=== PATIENT | male | born 1985 | race Caucasian/White ===

== ENCOUNTER 2019-01-17 14:49 | Emergency (ER) | payer BC ==
[2019-01-17 14:55] VITALS: BP 142/73; PULSE 91; RESP 18; TEMP 98.1
[2019-01-17] MEDS ORDERED: LIDOCAINE 1% INJ 10MG/ML (20 ML MDV) SQ ONE (15:03)
[2019-01-17] MEDS ORDERED: DIPH,PERTUS(ACELL)TETVAC-LF 0.5 ML VIAL IM ONE (15:54)
--- NOTE | 2019-01-17 16:21 | ED ---
General Adult HPI - General Chief complaint: Wound/Laceration Stated complaint: Hand lac Time Seen by Provider: 01/17/19 15:02 Source: patient Mode of arrival: ambulatory - History of Present Illness Initial comments: Patient is a 34-year-old male presents emergency Department with a chief complaint of cutting his finger with a knife. Patient reports incident happened one hour ago after he was using a knife and lacerated the medial aspect of his first left digit. Patient reports full range of motion of his left thumb. Patient reports active bleeding. Patient denies any edema at the site of injury. Patient is unaware of his tetanus status. Patient denies any numbness or tingling. Patient reports minimal pain and it is throbbing in nature. - Related Data Allergies Allergy/AdvReac Type Severity Reaction Status Date / Time acetaminophen Allergy Rash/Hives Verified 01/17/19 14:55 [From Darvocet-N] meperidine [From Demerol] Allergy Rash/Hives Verified 01/17/19 14:55 Penicillins Allergy Rash/Hives Verified 01/17/19 14:55 propoxyphene Allergy Rash/Hives Verified 01/17/19 14:55 [From Darvocet-N] Review of Systems ROS Statement: Those systems with pertinent positive or pertinent negative responses have been documented in the HPI. ROS Other: All systems not noted in ROS Statement are negative. Past Medical History Past Medical History: No Reported History History of Any Multi-Drug Resistant Organisms: None Reported Past Surgical History: Orthopedic Surgery Additional Past Surgical History / Comment(s): left ankle, left knee, reattached left bicep Past Psychological History: No Psychological Hx Reported Smoking Status: Never smoker Past Alcohol Use History: Occasional Past Drug Use History: None Reported General Exam - General Exam Comments Initial Comments: General: Well-developed well-nourished distress HEENT: Normocephalic/atraumatic, PERLL, pharynx erythema, swallowing well, EAC no erythema, no exudates, TM clear, no cervical lymph nodes Neck: Supple, nontender, trachea midline Chest/Lungs: Normal respirations, no signs of respiratory distress clear to auscultation bilaterally no wheezes, rales, rhonchi Cardiac: Regular rate and rhythm, normal S1-S2, no murmurs rubs or gallops Abdomen/GI: Soft nontender, bowel sounds equal or quadrant x4, no guarding, no rebound no CVA tenderness Musculoskeletal: 2 cm laceration on the medial aspect of the left thumb of the hand, full range of motion of the left thumb, mild active bleeding, normal capillary refill on all fingers, +2 dorsalis pedis and posterior tibialis, +2 ulnar radial pulses bilaterally Skin: Warmth, no rashes or lesions, no cyanosis or diaphoresis Neurologic: AAO x 3, CN 2-12 intact, Psychiatric: Mood and affect normal, judgment normal Course Vital Signs 01/17/19 14:50 Temperature 98.1 F Pulse Rate 91 Respiratory 18 Rate Blood Pressure 142/73 O2 Sat by Pulse 97 Oximetry Procedures - Laceration Laceration #1 Consent Obtained: verbal consent Indication: laceration Site: other (Left thumb) Size (cm): 2 Description: linear Depth: simple, single layer Sedation/Analgesia: none Anesthetic Used: lidocaine 1% Anesthesia Technique: local infiltration Amount (mls): 5 Pre-repair: irrigated extensively Type of Sutures: nylon Size of Sutures: 4-0 Number of Sutures: 4 Technique: simple, interrupted Patient Tolerated Procedure: well Medical Decision Making - Medical Decision Making Patient is a 34-year-old male presenting to emergency Department with a chief complaint of cut himself on the finger. Patient was given tetanus prophylaxis. Laceration site was repaired with 4 sutures. Patient tolerated the procedure well. Patient advised to return to emergency department in 10 days or sooner if symptoms worsen. Patient advised to follow proper wound care structures. Strict return parameters were thoroughly discussed the patient was understanding and agreeable. Case discussed with physician. Disposition Clinical Impression: Laceration Disposition: HOME SELF-CARE Condition: Stable Instructions (If sedation given, give patient instructions): Care For Your Stitches (DC), Laceration (DC) Additional Instructions: Please follow proper wound care structures. Please return to emergency department in 10-14 days for suture removal or sooner if symptoms worsen. Is patient prescribed a controlled substance at d/c from ED?: No Referrals: None,Stated [Primary Care Provider] - 1-2 days Time of Disposition: 16:21
[2019-01-19] MEDS ORDERED: SODIUM CHLORIDE 0.9% IRRIG 1,000 ML BTL IRRIGATION ONE (19:27)
== END 2019-01-17 16:29 | disposition home or self-care (01) ==
LOC: EC 14:49
DX: S61.012A Laceration without foreign body of left thumb without damage to nail, initial encounter (principal); Z88.0 Allergy status to penicillin; Z88.5 Allergy status to narcotic agent; Z88.6 Allergy status to analgesic agent; W26.0XXA Contact with knife, initial encounter
CPT/HCPCS: 99282; 12001; J2001